=== PATIENT | female | born 1940 | race Caucasian/White ===

== ENCOUNTER 2017-11-15 12:19 | Emergency (ER) | payer MEDICARE, MEDICAID ==
[2017-11-15 12:19] VITALS: BMI 26.9
[2017-11-15 12:41] VITALS: TEMP 98.9; O2SAT 98
[2017-11-15] MEDS ORDERED: Sodium Chloride 0.9% 1,000 ML IV STA (13:16)
[2017-11-15] MEDS ORDERED: DiphenhydrAMINE 50 mg/ml Inj IVP STA (13:17)
--- NOTE | 2017-11-15 13:24 | ED PDOC ---
HPI: Female Pain Time Seen by Provider: 11/15/17 12:40 Chief Complaint (Nursing): Female Genitourinary Chief Complaint (Provider): Female Genitourinary History Per: Patient History/Exam Limitations: no limitations Onset/Duration Of Symptoms: Days (x7) Current Symptoms Are (Timing): Still Present Additional Complaint(s): 77 y/o female with a PMHx of frequent UTIs presents to the ED complaining of abdominal pain and painful urination, onset one week ago. Patient states she saw her PMD who prescribed her doxycycline with no relief. Patient reports of seeing a urologist in the past at one point but is unsure who. Patient states that for her last UTI and prescribed Bactrim that cleared the infection but caused nausea and vomiting. At this time, patient denies nausea, vomiting, fever , chills, back pain. PMD: Horace Ellsworth Past Medical History Reviewed: Historical Data, Nursing Documentation, Vital Signs Vital Signs: Last Vital Signs Temp 98.9 F 11/15/17 12:37 Pulse 81 11/15/17 12:37 Resp 20 11/15/17 12:37 BP 168/71 H 11/15/17 12:37 Pulse Ox 98 11/15/17 12:37 - Medical History PMH: Anemia, Anxiety, Colonic Polyps, Gastritis, HTN, Hypercholesterolemia Denies: Chronic Kidney Disease - Surgical History Surgical History: Cholecystectomy, Endoscopy - Family History Family History: States: Unknown Family Hx - Home Medications Home Medications: Ambulatory Orders Medication Instructions Recorded Al[place]ren/Hydrochlorothiazide 1 tab PO DAILY 09/28/14 [Tekturna Hct 300 mg-12.5 mg] Alprazolam 0.5 mg PO HS 09/28/14 Amlodipine/Valsartan [Exforge 5 1 tab PO DAILY 09/28/14 mg-320 mg] Metformin Hydrochloride [Metformin 500 mg PO BID 09/28/14 HCl] Pregabalin [Lyrica] 100 mg PO DAILY 09/28/14 Sitagliptin Phosphate [Januvia] 100 mg PO DAILY 09/28/14 Tramadol Hydrochloride [Tramadol] 50 mg PO DAILY 03/22/15 Oxycodone HCl/Acetaminophen 7.5 - 325 mg PO Q8 PRN 06/28/15 [Percocet 7.5-325 mg Tablet] Oxycodone HCl/Acetaminophen 5 - 325 mg Q8 PRN 09/20/15 [Percocet 5-325 mg Tablet] Cephalexin [cephalexin] 500 mg PO BID #10 cap 11/15/17 - Allergies Allergies/Adverse Reactions: Allergies Allergy/AdvReac Type Severity Reaction Status Date / Time amoxicillin Allergy Intermediate RASH Verified 11/15/17 12:35 ciprofloxacin Allergy Intermediate RASH Verified 11/15/17 12:35 levofloxacin Allergy Intermediate RASH Verified 11/15/17 12:35 sulfamethoxazole Allergy Intermediate RASH Verified 11/15/17 12:35 trimethoprim Allergy Intermediate RASH Verified 11/15/17 12:35 Review of Systems ROS Statement: Except As Marked, All Systems Reviewed And Found Negative Constitutional: Negative for: Fever, Chills Gastrointestinal: Positive for: Abdominal Pain. Negative for: Nausea, Vomiting Genitourinary Female: Positive for: Dysuria Musculoskeletal: Negative for: Back Pain Physical Exam - Reviewed Nursing Documentation Reviewed: Yes Vital Signs Reviewed: Yes - Physical Exam Appears: Positive for: No Acute Distress Head Exam: Positive for: ATRAUMATIC Skin: Positive for: Normal Color, Warm, Dry Eye Exam: Positive for: Normal appearance, EOMI, PERRL Neck: Positive for: Normal, Painless ROM Cardiovascular/Chest: Positive for: Regular Rate, Rhythm. Negative for: Murmur Respiratory: Positive for: Normal Breath Sounds. Negative for: Respiratory Distress Gastrointestinal/Abdominal: Positive for: Normal Exam, Tenderness (Mild suprapubic tenderness) Back: Positive for: Normal Inspection. Negative for: L CVA Tenderness, R CVA Tenderness Extremity: Negative for: Normal ROM, Pedal Edema, Deformity Neurologic/Psych: Positive for: Alert, Oriented. Negative for: Motor/Sensory Deficits - Laboratory Results Result Diagrams: 11/15/17 13:35 11/15/17 13:35 - ECG O2 Sat by Pulse Oximetry: 98 (RA) Pulse Ox Interpretation: Normal Medical Decision Making Medical Decision Making: Time: 1318 Plan: -- CMP -- ED Urine Dipstick -- CBC with differentials -- Benadryl 25 mg IVP -- Sodium Chloride IV 125 mls/hr -- Rocephin 1 gm Sodium Chloride 0.9% 100 ml IVPB -- Toradol 30 mg IVP -- Urine Culture -- Urinalysis Labs resulted and reviewed with Pt who demonstrated full understanding. Pt doing well after medications, no adverse reactions reported. Advised to follow up with urology _ Scribe Attestation: Documented by Nico Ellis acting as a scribe for Zee Mendoza PA-C. Provider Scribe Attestation: All medical record entries made by the Scribe were at my direction and personally dictated by me. I have reviewed the chart and agree that the record accurately reflects my personal performance of the history, physical exam, medical decision making, and the department course for this patient. I have also personally directed, reviewed, and agree with the discharge instructions and disposition. Disposition - Clinical Impression Clinical Impression: Urinary tract infection - Patient ED Disposition Is Patient to be Admitted: No - Disposition Disposition: Routine/Home Disposition Time: 15:59 Condition: STABLE Prescriptions: Cephalexin [cephalexin] 500 mg PO BID #10 cap Instructions: Urinary Tract Infections in Adults Forms: [facility] ([place])
[2017-11-15 13:43] LABS: BASO # 0.1 K/uL (0.0-0.2); EOS # 0.2 K/uL (0.0-0.7); EOS % 3.2 % (0.0-4.0); HEMOGLOBIN 11.4 g/dL (12.0-16.0); LYMPH # 1.4 K/uL (1.0-4.3); LYMPH % 22.2 % (20.0-40.0); MEAN CELL VOLUME 94.9 fl (81.0-99.0); MEAN CORPUSCULAR HEMOGLOBIN 32.4 pg (27.0-31.0); MEAN CORPUSCULAR HGB CONC 34.1 g/dL (33.0-37.0); MEAN PLATELET VOLUME 8.4 fl (7.2-11.7); MONO # 0.6 K/uL (0.0-0.8); MONO % 9.6 % (0.0-10.0); RBC 3.53 Mil/uL (3.80-5.20); RED CELL DISTRIBUTION WIDTH 13.8 % (11.5-14.5); WHITE BLOOD COUNT 6.3 K/uL (4.8-10.8)
[2017-11-15] MEDS ORDERED: DiphenhydrAMINE 50 mg/ml Inj ONE (13:49)
[2017-11-15] MEDS ORDERED: cefTRIAXone (Rocephin) 1 gm Inj ONE (13:49)
[2017-11-15 13:50] LABS: ALB/GLOB RATIO 1.1 (1.0-2.1); ALBUMIN 4.3 g/dL (3.5-5.0); ALT/SGPT 25 U/L (9-52); AST/SGOT 26 U/L (14-36); BLOOD UREA NITROGEN 23 mg/dl (7-17); CALCIUM 9.7 mg/dL (8.4-10.2); GFR NON-AFRICAN AMERICAN > 60
[2017-11-15 14:13] LABS: SQUAMOUS EPITHIAL < 1 /hpf (0-5); URINE BILIRUBIN NEGATIVE (NEGATIVE); URINE BLOOD SMALL (NEGATIVE); URINE CLARITY TURBID (Clear); URINE COLOR YELLOW (YELLOW); URINE GLUCOSE (UA) NEG (Normal); URINE LEUKOCYTE ESTERASE LARGE Leu/uL (Negative); URINE PROTEIN NEGATIVE (NEGATIVE); URINE UROBILINOGEN 0.2-1.0 mg/dL (0.2-1.0); WBC CLUMPS MANY /hpf
[2017-11-15 14:32] LABS: URINE BACTERIA MOD (<OCC)
[2017-11-15 17:33] VITALS: BP 150/70; PULSE 78; RESP 18
== END 2017-11-15 16:23 | disposition home or self-care (01) ==
LOC: H.ER 12:19
DX: N39.0 Urinary tract infection, site not specified (principal); I10 Essential (primary) hypertension; Z88.2 Allergy status to sulfonamides; E78.00 Pure hypercholesterolemia, unspecified
CPT/HCPCS: 80053; 81003; 85025; 87086; 87181; 96374; 96375; 99284; J0696; J1200; J1885; J7030